=== PATIENT | female | born 1960 | race Caucasian/White ===

== ENCOUNTER 2021-03-17 07:20 | Day surgery (SDC) | payer OTHER ==
[2021-03-14 16:12] VITALS: BMI 26.6
[2021-03-17] MEDS ORDERED: KETAMINE HCL 500 MG/10 ML VIAL ONE (09:35)
[2021-03-17 10:49] VITALS: TEMP 98.2
[2021-03-17 11:06] VITALS: BP 141/83; PULSE 66
== END 2021-03-17 11:05 | disposition home or self-care (01) ==
LOC: FECT 07:20
PROVIDERS: ATTEND Psychiatry & Neurology Psychiatry
PROC: GZB4ZZZ Other Electroconvulsive Therapy (ICD-10-PCS; principal; 2021-03-17 09:30)
DX: F32.9 Major depressive disorder, single episode, unspecified (principal)
CPT/HCPCS: 90870; 94760

== ENCOUNTER 2021-03-20 08:54 | Day surgery (SDC) | payer OTHER ==
[2021-03-18 08:50] VITALS: BMI 26.6
[2021-03-20] MEDS ORDERED: KETAMINE HCL 500 MG/10 ML VIAL ONE (10:41)
[2021-03-20] MEDS ORDERED: PROPOFOL 20 ML ONE (10:41)
[2021-03-20] MEDS ORDERED: ONDANSETRON 4 MG/2 ML VIAL ONE (10:41)
[2021-03-20] MEDS ORDERED: SUCCINYLCHOLINE CHLORIDE 200 MG/10 ML SYRINGE ONE (10:41)
[2021-03-20] MEDS ORDERED: ONDANSETRON 4 MG/2 ML VIAL IVPUSH PRN (11:57)
[2021-03-20] MEDS ORDERED: LACTATED RINGERS SOLUTION 1,000 ML IV SCH (12:00)
[2021-03-20 12:48] VITALS: TEMP 98.6
[2021-03-20 14:19] VITALS: BP 142/79; PULSE 71
== END 2021-03-20 12:30 | disposition home or self-care (01) ==
LOC: FECT 08:54
PROVIDERS: ATTEND Psychiatry & Neurology Psychiatry
PROC: GZB4ZZZ Other Electroconvulsive Therapy (ICD-10-PCS; principal; 2021-03-20 10:30)
DX: F32.9 Major depressive disorder, single episode, unspecified (principal)
CPT/HCPCS: 90870; 94760

== ENCOUNTER 2021-03-21 08:24 | Day surgery (SDC) | payer OTHER ==
[2021-03-18 09:04] VITALS: BMI 26.6
[2021-03-21] MEDS ORDERED: KETAMINE HCL 500 MG/10 ML VIAL ONE (09:44)
[2021-03-21 11:45] VITALS: TEMP 97.8
[2021-03-21 11:48] VITALS: BP 145/76; PULSE 75
== END 2021-03-21 11:45 | disposition home or self-care (01) ==
LOC: FECT 08:24
PROVIDERS: ATTEND Psychiatry & Neurology Psychiatry
PROC: GZB4ZZZ Other Electroconvulsive Therapy (ICD-10-PCS; principal; 2021-03-21 09:30)
DX: F33.2 Major depressive disorder, recurrent severe without psychotic features (principal); I10 Essential (primary) hypertension; E78.5 Hyperlipidemia, unspecified; Z91.5 Personal history of self-harm
CPT/HCPCS: 90870; 94760

== ENCOUNTER 2021-03-24 09:04 | Day surgery (SDC) | payer OTHER ==
[2021-03-18 09:30] VITALS: BMI 26.6
[2021-03-24] MEDS ORDERED: KETAMINE HCL 500 MG/10 ML VIAL ONE (10:17)
[2021-03-24 11:49] VITALS: TEMP 97.6
[2021-03-24 12:00] VITALS: BP 149/76; PULSE 72
== END 2021-03-24 12:19 | disposition home or self-care (01) ==
LOC: FECT 09:04
PROVIDERS: ATTEND Psychiatry & Neurology Psychiatry
PROC: GZB0ZZZ Electroconvulsive Therapy, Unilateral-Single Seizure (ICD-10-PCS; principal; 2021-03-24 10:30)
DX: F33.2 Major depressive disorder, recurrent severe without psychotic features (principal); I10 Essential (primary) hypertension; E78.5 Hyperlipidemia, unspecified; Z91.5 Personal history of self-harm
CPT/HCPCS: 90870; 94760

== ENCOUNTER 2021-03-27 06:34 | Day surgery (SDC) | payer OTHER ==
[2021-03-18 09:08] VITALS: BMI 26.6
[2021-03-27] MEDS ORDERED: KETAMINE HCL 500 MG/10 ML VIAL ONE (08:42)
[2021-03-27 11:12] VITALS: BP 112/73; PULSE 88; TEMP 97.9
== END 2021-03-27 10:10 | disposition home or self-care (01) ==
LOC: FECT 06:34
PROVIDERS: ATTEND Psychiatry & Neurology Psychiatry
PROC: GZB4ZZZ Other Electroconvulsive Therapy (ICD-10-PCS; principal; 2021-03-27 08:30)
DX: F32.9 Major depressive disorder, single episode, unspecified (principal)
CPT/HCPCS: 90870; 94760

== ENCOUNTER 2021-03-31 11:25 | Day surgery (SDC) | payer OTHER ==
[2021-03-26 15:51] VITALS: BMI 26.6
[2021-03-31 16:46] VITALS: TEMP 97.8
[2021-03-31 16:47] VITALS: BP 147/84; PULSE 67
== END 2021-03-31 14:45 | disposition home or self-care (01) ==
LOC: FECT 11:25
PROVIDERS: ATTEND Psychiatry & Neurology Psychiatry
PROC: GZB4ZZZ Other Electroconvulsive Therapy (ICD-10-PCS; principal; 2021-03-31 13:00)
DX: F33.2 Major depressive disorder, recurrent severe without psychotic features (principal)
CPT/HCPCS: 90870; 94760

== ENCOUNTER 2021-04-03 06:38 | Day surgery (SDC) | payer OTHER ==
[2021-03-31 12:57] VITALS: BMI 26.6
[2021-04-03 07:13] VITALS: TEMP 98.2
[2021-04-03] MEDS ORDERED: LACTATED RINGERS SOLUTION 1,000 ML IV SCH (07:45)
[2021-04-03] MEDS ORDERED: ONDANSETRON 4 MG/2 ML VIAL ONE (08:12)
[2021-04-03] MEDS ORDERED: KETAMINE HCL 500 MG/10 ML VIAL ONE (08:13)
[2021-04-03 09:41] VITALS: BP 123/73; PULSE 64
== END 2021-04-03 09:40 | disposition home or self-care (01) ==
LOC: FECT 06:38
PROVIDERS: ATTEND Psychiatry & Neurology Psychiatry
PROC: GZB4ZZZ Other Electroconvulsive Therapy (ICD-10-PCS; principal; 2021-04-03 08:30)
DX: F33.2 Major depressive disorder, recurrent severe without psychotic features (principal)
CPT/HCPCS: 90870; 94760

== ENCOUNTER 2021-04-07 08:28 | Day surgery (SDC) | payer OTHER ==
[2021-03-31 12:59] VITALS: BMI 26.6
[2021-04-07] MEDS ORDERED: KETAMINE HCL 500 MG/10 ML VIAL ONE (10:02)
[2021-04-07] MEDS ORDERED: PROMETHAZINE HCL 25 MG/1 ML VIAL IVPB PRN (10:38)
[2021-04-07] MEDS ORDERED: ACETAMINOPHEN 325 MG TABLET (FP) PO PRN (10:38)
[2021-04-07] MEDS ORDERED: LACTATED RINGERS SOLUTION 1,000 ML IV SCH (10:45)
[2021-04-07 10:48] VITALS: TEMP 97.6
[2021-04-07 11:41] VITALS: BP 137/79; PULSE 69
== END 2021-04-07 11:45 | disposition home or self-care (01) ==
LOC: FECT 08:28
PROVIDERS: ATTEND Psychiatry & Neurology Psychiatry
PROC: GZB4ZZZ Other Electroconvulsive Therapy (ICD-10-PCS; principal; 2021-04-07 10:00)
DX: F33.2 Major depressive disorder, recurrent severe without psychotic features (principal)
CPT/HCPCS: 90870; 94760

== ENCOUNTER 2021-04-10 10:24 | Day surgery (SDC) | payer OTHER ==
[2021-04-08 09:16] VITALS: BMI 26.6
[2021-04-10] MEDS ORDERED: KETAMINE HCL 500 MG/10 ML VIAL ONE (11:41)
[2021-04-10] MEDS ORDERED: SUCCINYLCHOLINE CHLORIDE 200 MG/10 ML SYRINGE ONE (11:48)
[2021-04-10] MEDS ORDERED: PROPOFOL 20 ML ONE (11:48)
[2021-04-10] MEDS ORDERED: ONDANSETRON 4 MG/2 ML VIAL ONE (11:50)
[2021-04-10 13:09] VITALS: BP 141/90; PULSE 77; TEMP 98
== END 2021-04-10 13:10 | disposition home or self-care (01) ==
LOC: FECT 10:24
PROVIDERS: ATTEND Psychiatry & Neurology Psychiatry
PROC: GZB4ZZZ Other Electroconvulsive Therapy (ICD-10-PCS; principal; 2021-04-10 11:30)
DX: F33.2 Major depressive disorder, recurrent severe without psychotic features (principal)
CPT/HCPCS: 90870; 94760

== ENCOUNTER 2021-04-15 07:08 | Day surgery (SDC) | payer OTHER ==
[2021-04-15 07:38] VITALS: BMI 26.6
[2021-04-15] MEDS ORDERED: KETAMINE HCL 500 MG/10 ML VIAL ONE (09:09)
[2021-04-15 10:35] VITALS: TEMP 98
[2021-04-15 11:04] VITALS: BP 144/81; PULSE 76
== END 2021-04-15 10:45 | disposition home or self-care (01) ==
LOC: FECT 07:08
PROVIDERS: ATTEND Psychiatry & Neurology Psychiatry
PROC: GZB4ZZZ Other Electroconvulsive Therapy (ICD-10-PCS; principal; 2021-04-15 10:00)
DX: F32.9 Major depressive disorder, single episode, unspecified (principal)
CPT/HCPCS: 90870; 94760

== ENCOUNTER 2021-04-17 07:10 | Day surgery (SDC) | payer OTHER ==
[2021-04-15 18:08] VITALS: BMI 26.6
[2021-04-17] MEDS ORDERED: KETAMINE HCL 500 MG/10 ML VIAL ONE (08:06)
[2021-04-17 08:29] VITALS: TEMP 98.4
[2021-04-17 09:24] VITALS: BP 144/89; PULSE 77
== END 2021-04-17 09:25 | disposition home or self-care (01) ==
LOC: FECT 07:10
PROVIDERS: ATTEND Psychiatry & Neurology Psychiatry
PROC: GZB4ZZZ Other Electroconvulsive Therapy (ICD-10-PCS; principal; 2021-04-17 08:00)
DX: F32.9 Major depressive disorder, single episode, unspecified (principal)
CPT/HCPCS: 90870; 94760

== ENCOUNTER 2021-04-21 07:13 | Day surgery (SDC) | payer OTHER ==
[2021-04-17 10:21] VITALS: BMI 26.6
[2021-04-21] MEDS ORDERED: KETAMINE HCL 500 MG/10 ML VIAL ONE (08:03)
[2021-04-21 09:13] VITALS: TEMP 98.3
[2021-04-21 09:52] VITALS: BP 152/88; PULSE 70
== END 2021-04-21 09:31 | disposition home or self-care (01) ==
LOC: FECT 07:13
PROVIDERS: ATTEND Psychiatry & Neurology Psychiatry
PROC: GZB4ZZZ Other Electroconvulsive Therapy (ICD-10-PCS; principal; 2021-04-21 09:00)
DX: F32.9 Major depressive disorder, single episode, unspecified (principal)
CPT/HCPCS: 90870; 94760

== ENCOUNTER 2021-04-24 07:10 | Day surgery (SDC) | payer OTHER ==
[2021-04-17 10:25] VITALS: BMI 26.6
[2021-04-24] MEDS ORDERED: KETAMINE HCL 500 MG/10 ML VIAL ONE (08:42)
[2021-04-24 09:44] VITALS: TEMP 98.1
[2021-04-24 10:00] VITALS: BP 133/89; PULSE 66
== END 2021-04-24 10:05 | disposition home or self-care (01) ==
LOC: FECT 07:10
PROVIDERS: ATTEND Psychiatry & Neurology Psychiatry
PROC: GZB4ZZZ Other Electroconvulsive Therapy (ICD-10-PCS; principal; 2021-04-24 09:00)
DX: F32.9 Major depressive disorder, single episode, unspecified (principal)
CPT/HCPCS: 90870; 94760

== ENCOUNTER 2021-04-28 08:39 | Day surgery (SDC) | payer OTHER ==
[2021-04-28 09:04] VITALS: BMI 26.6
[2021-04-28] MEDS ORDERED: KETAMINE HCL 500 MG/10 ML VIAL ONE (10:36)
[2021-04-28 11:46] VITALS: TEMP 98.7
[2021-04-28 12:16] VITALS: BP 148/88; PULSE 77
== END 2021-04-28 12:10 | disposition home or self-care (01) ==
LOC: FECT 08:39
PROVIDERS: ATTEND Psychiatry & Neurology Psychiatry
PROC: GZB4ZZZ Other Electroconvulsive Therapy (ICD-10-PCS; principal; 2021-04-28 10:30)
DX: F32.9 Major depressive disorder, single episode, unspecified (principal)
CPT/HCPCS: 90870; 94760

== ENCOUNTER 2021-05-01 08:37 | Day surgery (SDC) | payer OTHER ==
[2021-04-25 12:13] VITALS: BMI 26.6
[2021-05-01] MEDS ORDERED: KETAMINE HCL 500 MG/10 ML VIAL ONE (10:42)
[2021-05-01 11:43] VITALS: TEMP 98.2
[2021-05-01 11:58] VITALS: BP 141/87; PULSE 76
== END 2021-05-01 12:00 | disposition home or self-care (01) ==
LOC: FECT 08:37
PROVIDERS: ATTEND Psychiatry & Neurology Psychiatry
PROC: GZB4ZZZ Other Electroconvulsive Therapy (ICD-10-PCS; principal; 2021-05-01 10:00)
DX: F32.9 Major depressive disorder, single episode, unspecified (principal)
CPT/HCPCS: 90870; 94760

== ENCOUNTER 2021-05-05 09:27 | Day surgery (SDC) | payer OTHER ==
[2021-04-29 08:41] VITALS: BMI 26.6
[2021-05-05] MEDS ORDERED: KETAMINE HCL 500 MG/10 ML VIAL ONE (11:42)
[2021-05-05 12:19] VITALS: TEMP 98.9
[2021-05-05 12:48] VITALS: BP 145/86; PULSE 70
== END 2021-05-05 13:10 | disposition home or self-care (01) ==
LOC: FECT 09:27
PROVIDERS: ATTEND Psychiatry & Neurology Psychiatry
PROC: GZB4ZZZ Other Electroconvulsive Therapy (ICD-10-PCS; principal; 2021-05-05 11:00)
DX: F32.9 Major depressive disorder, single episode, unspecified (principal)
CPT/HCPCS: 90870; 94760

== ENCOUNTER 2021-05-15 08:21 | Day surgery (SDC) | payer OTHER ==
[2021-04-30 11:44] VITALS: BMI 26.6
[2021-05-15 09:02] VITALS: TEMP 98.3
[2021-05-15] MEDS ORDERED: KETAMINE HCL 500 MG/10 ML VIAL ONE (09:40)
[2021-05-15 11:00] VITALS: BP 141/81; PULSE 69
== END 2021-05-15 11:05 | disposition home or self-care (01) ==
LOC: FECT 08:21
PROVIDERS: ATTEND Psychiatry & Neurology Psychiatry
PROC: GZB4ZZZ Other Electroconvulsive Therapy (ICD-10-PCS; principal; 2021-05-15 09:30)
DX: F32.9 Major depressive disorder, single episode, unspecified (principal)
CPT/HCPCS: 90870; 94760

== ENCOUNTER 2021-05-22 09:18 | Day surgery (SDC) | payer OTHER ==
[2021-05-19 17:36] VITALS: BMI 26.6
[2021-05-22 10:03] VITALS: TEMP 97.1
[2021-05-22] MEDS ORDERED: PROPOFOL 20 ML ONE (10:57)
[2021-05-22] MEDS ORDERED: KETAMINE HCL 500 MG/10 ML VIAL ONE (10:58)
[2021-05-22 13:06] VITALS: BP 144/89; PULSE 68
== END 2021-05-22 12:30 | disposition home or self-care (01) ==
LOC: FECT 09:18
PROVIDERS: ATTEND Psychiatry & Neurology Psychiatry
PROC: GZB4ZZZ Other Electroconvulsive Therapy (ICD-10-PCS; principal; 2021-05-22 10:30)
DX: F32.9 Major depressive disorder, single episode, unspecified (principal)
CPT/HCPCS: 90870; 94760

== ENCOUNTER 2021-05-26 10:17 | Day surgery (SDC) | payer OTHER ==
[2021-05-22 14:42] VITALS: BMI 26.6
[2021-05-26] MEDS ORDERED: PROPOFOL 20 ML ONE (11:13)
[2021-05-26] MEDS ORDERED: KETAMINE HCL 200 MG/20 ML VIAL ONE (11:14)
[2021-05-26 14:45] VITALS: TEMP 98
[2021-05-26 14:51] VITALS: BP 146/84; PULSE 72
== END 2021-05-26 12:50 | disposition home or self-care (01) ==
LOC: FECT 10:17
PROVIDERS: ATTEND Psychiatry & Neurology Psychiatry
PROC: GZB4ZZZ Other Electroconvulsive Therapy (ICD-10-PCS; principal; 2021-05-26 11:00)
DX: F32.9 Major depressive disorder, single episode, unspecified (principal)
CPT/HCPCS: 90870; 94760

== ENCOUNTER 2021-05-30 06:31 | Day surgery (SDC) | payer OTHER ==
[2021-05-30 07:25] VITALS: BMI 26.6
[2021-05-30] MEDS ORDERED: PROPOFOL 20 ML ONE (07:57)
[2021-05-30] MEDS ORDERED: SUCCINYLCHOLINE CHLORIDE 200 MG/10 ML SYRINGE ONE (07:58)
[2021-05-30] MEDS ORDERED: KETAMINE HCL 500 MG/10 ML VIAL ONE (08:01)
[2021-05-30 09:26] VITALS: PULSE 78; TEMP 98.2
[2021-05-30 10:01] VITALS: BP 132/84
[2021-05-31 14:08] LABS: SARS-CoV-2 NAA Not Detected (Not Detected)
== END 2021-05-30 09:50 | disposition home or self-care (01) ==
LOC: FECT 06:31
PROVIDERS: ATTEND Psychiatry & Neurology Psychiatry
PROC: GZB4ZZZ Other Electroconvulsive Therapy (ICD-10-PCS; principal; 2021-05-30 08:30)
DX: F32.9 Major depressive disorder, single episode, unspecified (principal)
CPT/HCPCS: 90870; 94760; C9803; U0003; U0005

== ENCOUNTER 2021-06-02 07:31 | Day surgery (SDC) | payer OTHER ==
[2021-05-29 17:29] VITALS: BMI 26.6
[2021-06-02] MEDS ORDERED: KETAMINE HCL 500 MG/10 ML VIAL ONE (08:51)
[2021-06-02 09:48] VITALS: BP 132/86; PULSE 72; TEMP 98.2
== END 2021-06-02 10:05 | disposition home or self-care (01) ==
LOC: FECT 07:31
PROVIDERS: ATTEND Psychiatry & Neurology Psychiatry
PROC: GZB4ZZZ Other Electroconvulsive Therapy (ICD-10-PCS; principal; 2021-06-02 09:00)
DX: F32.9 Major depressive disorder, single episode, unspecified (principal)
CPT/HCPCS: 90870; 94760; C9803; U0003; U0005

== ENCOUNTER 2021-06-06 08:38 | Day surgery (SDC) | payer OTHER ==
[2021-06-03 13:05] VITALS: BMI 26.6
[2021-06-06 10:19] VITALS: TEMP 98
[2021-06-06 11:28] VITALS: BP 129/84; PULSE 73
== END 2021-06-06 11:00 | disposition home or self-care (01) ==
LOC: FECT 08:38
PROVIDERS: ATTEND Psychiatry & Neurology Psychiatry
PROC: GZB4ZZZ Other Electroconvulsive Therapy (ICD-10-PCS; principal; 2021-06-06 09:30)
DX: F32.9 Major depressive disorder, single episode, unspecified (principal)
CPT/HCPCS: 90870; 94760; C9803; U0003; U0005

== ENCOUNTER 2021-06-09 06:52 | Day surgery (SDC) | payer OTHER ==
[2021-06-03 13:07] VITALS: BMI 26.6
[2021-06-09] MEDS ORDERED: KETAMINE HCL 500 MG/10 ML VIAL ONE (08:29)
[2021-06-09 10:05] VITALS: TEMP 97.8
[2021-06-09 10:10] VITALS: BP 134/81; PULSE 76
== END 2021-06-09 10:12 | disposition home or self-care (01) ==
LOC: FECT 06:52
PROVIDERS: ATTEND Psychiatry & Neurology Psychiatry
PROC: GZB4ZZZ Other Electroconvulsive Therapy (ICD-10-PCS; principal; 2021-06-09 09:00)
DX: F33.2 Major depressive disorder, recurrent severe without psychotic features (principal)
CPT/HCPCS: 90870; 94760; C9803; U0003; U0005

== ENCOUNTER 2021-06-12 07:14 | Day surgery (SDC) | payer OTHER ==
[2021-06-06 17:16] VITALS: BMI 26.6
[2021-06-12 07:34] VITALS: TEMP 98.6
[2021-06-12] MEDS ORDERED: KETAMINE HCL 500 MG/10 ML VIAL ONE (08:06)
[2021-06-12 10:01] VITALS: BP 139/80; PULSE 69
== END 2021-06-12 10:15 | disposition home or self-care (01) ==
LOC: FECT 07:14
PROVIDERS: ATTEND Psychiatry & Neurology Psychiatry
PROC: GZB4ZZZ Other Electroconvulsive Therapy (ICD-10-PCS; principal; 2021-06-12 09:00)
DX: F32.9 Major depressive disorder, single episode, unspecified (principal)
CPT/HCPCS: 90870; 94760; C9803; U0003; U0005

== ENCOUNTER 2021-06-17 06:37 | Day surgery (SDC) | payer OTHER ==
[2021-06-09 16:55] VITALS: BMI 26.6
[2021-06-17] MEDS ORDERED: KETAMINE HCL 500 MG/10 ML VIAL ONE (07:42)
[2021-06-17 08:37] VITALS: TEMP 97.4
[2021-06-17 09:18] VITALS: BP 136/81; PULSE 69
== END 2021-06-17 09:20 | disposition home or self-care (01) ==
LOC: FECT 06:37
PROVIDERS: ATTEND Psychiatry & Neurology Psychiatry
PROC: GZB4ZZZ Other Electroconvulsive Therapy (ICD-10-PCS; principal; 2021-06-17 09:00)
DX: F32.9 Major depressive disorder, single episode, unspecified (principal)
CPT/HCPCS: 90870; 94760; C9803; U0003; U0005

== ENCOUNTER 2021-06-19 09:07 | Day surgery (SDC) | payer OTHER ==
[2021-06-19 09:33] VITALS: TEMP 98.1; BMI 26.6
[2021-06-19] MEDS ORDERED: KETAMINE HCL 500 MG/10 ML VIAL ONE (11:24)
[2021-06-19 12:40] VITALS: BP 143/90; PULSE 74
== END 2021-06-19 12:40 | disposition home or self-care (01) ==
LOC: FECT 09:07
PROVIDERS: ATTEND Psychiatry & Neurology Psychiatry
PROC: GZB4ZZZ Other Electroconvulsive Therapy (ICD-10-PCS; principal; 2021-06-19 10:30)
DX: F32.9 Major depressive disorder, single episode, unspecified (principal)
CPT/HCPCS: 90870; 94760; C9803; U0003; U0005

== ENCOUNTER 2021-06-23 06:44 | Day surgery (SDC) | payer OTHER ==
[2021-06-17 12:12] VITALS: BMI 26.6
[2021-06-23] MEDS ORDERED: KETAMINE HCL 500 MG/10 ML VIAL ONE (08:41)
[2021-06-23] MEDS ORDERED: PROPOFOL 20 ML ONE (08:44)
[2021-06-23] MEDS ORDERED: ONDANSETRON 4 MG/2 ML VIAL ONE (08:45)
[2021-06-23] MEDS ORDERED: PROMETHAZINE HCL 25 MG/1 ML VIAL IVPUSH PRN (09:12)
[2021-06-23] MEDS ORDERED: LACTATED RINGERS SOLUTION 1,000 ML IV SCH (09:15)
[2021-06-23 09:47] VITALS: TEMP 97.5
[2021-06-23 10:00] VITALS: BP 122/73; PULSE 73
== END 2021-06-23 10:05 | disposition home or self-care (01) ==
LOC: FECT 06:44
PROVIDERS: ATTEND Psychiatry & Neurology Psychiatry
PROC: GZB4ZZZ Other Electroconvulsive Therapy (ICD-10-PCS; principal; 2021-06-23 08:30)
DX: F32.9 Major depressive disorder, single episode, unspecified (principal)
CPT/HCPCS: 90870; 94760; C9803; U0003; U0005

== ENCOUNTER 2021-06-26 06:42 | Day surgery (SDC) | payer OTHER ==
[2021-06-17 12:07] VITALS: BMI 26.6
[2021-06-26] MEDS ORDERED: KETAMINE HCL 500 MG/10 ML VIAL ONE (07:42)
[2021-06-26 09:12] VITALS: TEMP 98.4
[2021-06-26 09:31] VITALS: BP 132/89; PULSE 77
== END 2021-06-26 09:35 | disposition home or self-care (01) ==
LOC: FECT 06:42
PROVIDERS: ATTEND Psychiatry & Neurology Psychiatry
PROC: GZB4ZZZ Other Electroconvulsive Therapy (ICD-10-PCS; principal; 2021-06-26 08:00)
DX: F32.9 Major depressive disorder, single episode, unspecified (principal)
CPT/HCPCS: 90870; 94760; C9803; U0003; U0005

== ENCOUNTER 2021-06-30 07:42 | Day surgery (SDC) | payer OTHER ==
[2021-06-24 17:15] VITALS: BMI 26.6
[2021-06-30] MEDS ORDERED: PROPOFOL 20 ML ONE (09:20)
[2021-06-30] MEDS ORDERED: KETAMINE HCL 200 MG/20 ML VIAL ONE (09:21)
[2021-06-30] MEDS ORDERED: SUCCINYLCHOLINE CHLORIDE 200 MG/10 ML SYRINGE ONE (09:21)
[2021-06-30 10:18] VITALS: TEMP 98
[2021-06-30 10:59] VITALS: BP 122/74; PULSE 76
== END 2021-06-30 10:40 | disposition home or self-care (01) ==
LOC: FECT 07:42
PROVIDERS: ATTEND Psychiatry & Neurology Psychiatry
PROC: GZB4ZZZ Other Electroconvulsive Therapy (ICD-10-PCS; principal; 2021-06-30 10:00)
DX: F32.9 Major depressive disorder, single episode, unspecified (principal)
CPT/HCPCS: 90870; 94760; C9803; U0003; U0005

== ENCOUNTER 2021-07-03 07:03 | Day surgery (SDC) | payer OTHER ==
[2021-06-26 14:27] VITALS: BMI 26.6
[2021-07-03] MEDS ORDERED: PROPOFOL 20 ML ONE (08:44)
[2021-07-03] MEDS ORDERED: SUCCINYLCHOLINE CHLORIDE 200 MG/10 ML SYRINGE ONE (08:44)
[2021-07-03] MEDS ORDERED: KETAMINE HCL 500 MG/10 ML VIAL ONE (09:03)
[2021-07-03 09:51] VITALS: TEMP 98.2
[2021-07-03 10:19] VITALS: BP 122/72; PULSE 76
== END 2021-07-03 10:21 | disposition home or self-care (01) ==
LOC: FECT 07:03
PROVIDERS: ATTEND Psychiatry & Neurology Psychiatry
PROC: GZB4ZZZ Other Electroconvulsive Therapy (ICD-10-PCS; principal; 2021-07-03 09:00)
DX: F32.9 Major depressive disorder, single episode, unspecified (principal)
CPT/HCPCS: 90870; 94760; C9803; U0003; U0005

== ENCOUNTER 2021-07-07 07:09 | Day surgery (SDC) | payer OTHER ==
[2021-07-07 07:41] VITALS: TEMP 97.9; BMI 26.6
[2021-07-07] MEDS ORDERED: KETAMINE HCL 500 MG/10 ML VIAL ONE (08:15)
[2021-07-07 10:02] VITALS: BP 142/90; PULSE 78
== END 2021-07-07 10:02 | disposition home or self-care (01) ==
LOC: FECT 07:09
PROVIDERS: ATTEND Psychiatry & Neurology Psychiatry
PROC: GZB4ZZZ Other Electroconvulsive Therapy (ICD-10-PCS; principal; 2021-07-07 09:00)
DX: F32.9 Major depressive disorder, single episode, unspecified (principal)
CPT/HCPCS: 90870; 94760; C9803; U0003; U0005

== ENCOUNTER → 2021-07-10 | Day surgery (SDC) | payer OTHER ==
[~2021-07-10] MED LIST: KETAMINE HCL 500 MG/10 ML VIAL ONE
[2021-07-10 07:07] VITALS: BMI 28.1
[2021-07-10 09:16] VITALS: BP 152/98; PULSE 74; TEMP 98.2
== END | disposition home or self-care (01) ==
LOC: FECT 06:40
PROVIDERS: ATTEND Psychiatry & Neurology Psychiatry
PROC: GZB4ZZZ Other Electroconvulsive Therapy (ICD-10-PCS; principal; 2021-07-10 08:30)
DX: F32.9 Major depressive disorder, single episode, unspecified (principal)
CPT/HCPCS: 90870; 94760; C9803; U0003; U0005

== ENCOUNTER 2021-07-14 07:26 | Day surgery (SDC) | payer OTHER ==
[2021-07-10 14:04] VITALS: BMI 28.1
[2021-07-14] MEDS ORDERED: PROPOFOL 20 ML ONE (09:30)
[2021-07-14] MEDS ORDERED: KETAMINE HCL 500 MG/10 ML VIAL ONE (09:46)
[2021-07-14 12:11] VITALS: TEMP 97.8
[2021-07-14 12:18] VITALS: BP 152/90; PULSE 75
== END 2021-07-14 11:15 | disposition home or self-care (01) ==
LOC: FECT 07:26
PROVIDERS: ATTEND Psychiatry & Neurology Psychiatry
PROC: GZB4ZZZ Other Electroconvulsive Therapy (ICD-10-PCS; principal; 2021-07-14 09:30)
DX: F32.9 Major depressive disorder, single episode, unspecified (principal)
CPT/HCPCS: 90870; 94760; C9803; U0003; U0005

== ENCOUNTER 2021-07-17 07:10 | Day surgery (SDC) | payer OTHER ==
[2021-07-14 11:10] VITALS: BMI 28.1
[2021-07-17] MEDS ORDERED: KETAMINE HCL 500 MG/10 ML VIAL ONE (08:02)
[2021-07-17 09:42] VITALS: TEMP 97.8
[2021-07-17 10:16] VITALS: BP 138/82; PULSE 76
== END 2021-07-17 10:20 | disposition home or self-care (01) ==
LOC: FECT 07:10
PROVIDERS: ATTEND Psychiatry & Neurology Psychiatry
PROC: GZB4ZZZ Other Electroconvulsive Therapy (ICD-10-PCS; principal; 2021-07-17 09:00)
DX: F32.9 Major depressive disorder, single episode, unspecified (principal)
CPT/HCPCS: 90870; 94760; C9803; U0003; U0005

== ENCOUNTER 2021-07-21 07:53 | Day surgery (SDC) | payer OTHER ==
[2021-07-21 08:12] VITALS: BMI 28.1
[2021-07-21] MEDS ORDERED: KETAMINE HCL 500 MG/10 ML VIAL ONE (08:26)
[2021-07-21 08:54] VITALS: TEMP 98.9
[2021-07-21 10:30] VITALS: BP 138/76; PULSE 76
== END 2021-07-21 10:00 | disposition home or self-care (01) ==
LOC: FASU 07:53
PROVIDERS: ATTEND Psychiatry & Neurology Psychiatry
PROC: GZB4ZZZ Other Electroconvulsive Therapy (ICD-10-PCS; principal; 2021-07-21 09:00)
DX: F33.2 Major depressive disorder, recurrent severe without psychotic features (principal)
CPT/HCPCS: 90870; 94760; C9803; U0003; U0005

== ENCOUNTER 2021-07-24 05:54 | Day surgery (SDC) | payer OTHER ==
[2021-07-22 08:46] VITALS: BMI 28.1
[2021-07-24] MEDS ORDERED: KETAMINE HCL 500 MG/10 ML VIAL ONE (07:31)
[2021-07-24] MEDS ORDERED: PROPOFOL 20 ML ONE (07:47)
[2021-07-24 08:34] VITALS: TEMP 98.5
[2021-07-24 09:00] VITALS: BP 144/90; PULSE 77
== END 2021-07-24 08:50 | disposition home or self-care (01) ==
LOC: FECT 05:54
PROVIDERS: ATTEND Psychiatry & Neurology Psychiatry
PROC: GZB4ZZZ Other Electroconvulsive Therapy (ICD-10-PCS; principal; 2021-07-24 08:30)
DX: F32.9 Major depressive disorder, single episode, unspecified (principal)
CPT/HCPCS: 90870; 94760; C9803; U0003; U0005

== ENCOUNTER 2021-07-28 05:47 | Day surgery (SDC) | payer OTHER ==
[2021-07-22 11:57] VITALS: BMI 28.1
[2021-07-28 07:48] VITALS: TEMP 97.8
[2021-07-28] MEDS ORDERED: KETAMINE HCL 500 MG/10 ML VIAL ONE (08:44)
[2021-07-28 09:57] VITALS: BP 144/81; PULSE 80
== END 2021-07-28 10:02 | disposition home or self-care (01) ==
LOC: FECT 05:47
PROVIDERS: ATTEND Psychiatry & Neurology Psychiatry
PROC: GZB4ZZZ Other Electroconvulsive Therapy (ICD-10-PCS; principal; 2021-07-28 09:00)
DX: F32.9 Major depressive disorder, single episode, unspecified (principal)
CPT/HCPCS: 90870; 94760; C9803; U0003; U0005

== ENCOUNTER 2021-07-31 06:40 | Day surgery (SDC) | payer OTHER ==
[2021-07-23 14:57] VITALS: BMI 28.1
[2021-07-31] MEDS ORDERED: KETAMINE HCL 500 MG/10 ML VIAL ONE (07:28)
[2021-07-31 08:42] VITALS: TEMP 98
[2021-07-31 09:19] VITALS: BP 124/84; PULSE 64
== END 2021-07-31 09:10 | disposition home or self-care (01) ==
LOC: FECT 06:40
PROVIDERS: ATTEND Psychiatry & Neurology Psychiatry
PROC: GZB4ZZZ Other Electroconvulsive Therapy (ICD-10-PCS; principal; 2021-07-31 08:00)
DX: F32.9 Major depressive disorder, single episode, unspecified (principal)
CPT/HCPCS: 90870; 94760